=== PATIENT | male | born 1955 | race Caucasian/White ===

== ENCOUNTER 2018-09-18 10:12 | Emergency (ER) | payer MEDICARE, BC ==
[~2018-09-18] VITALS: Ht 188 cm; Wt 122.7 kg
[~2018-09-18 10:12] MED LIST: ALLO300T8 PO; ATOR10TA70 PO; CARV-50 PO; HYDR12.5 PO; LISD40CA PO; WARF6TAB49 PO
[2018-09-18] MEDS ORDERED: HYDROcodone/acetaminophen 10/325mg tab PO ONE (11:05)
[2018-09-18] MEDS ORDERED: ondansetron 4mg rapidly disintigrating tab PO ONE (11:05)
[2018-09-18] MEDS ORDERED: morphine 4 MG/ML inj SYRINge IV PRN (11:50)
[2018-09-18] MEDS ORDERED: ondansetron/PF 4mg/2ml inj IV ONE (11:50)
[2018-09-18] MEDS ORDERED: normal saline 1000ML IV soln IVB ONE (11:50)
[2018-09-18] MEDS ORDERED: predniSONE 20 mg tablet PO ONE (12:30)
[2018-09-18] MEDS ORDERED: azithromycin 250mg tablet PO ONE (12:30)
[2018-09-18 12:56] LABS: ALANINE AMINOTRANSFERASE 95 U/L (12-78); ALBUMIN 3.4 G/DL (3.4-5.0); ALBUMIN/GLOBULIN RATIO 1.1 (1.1-1.5); ALKALINE PHOSPHATASE 89 IU/L (46-116); ANION GAP 9 (8-16); ASPARTATE AMINO TRANSFERASE 66 U/L (10-37); BASOPHILS % (AUTO) 0.4 % (0-1); BILIRUBIN,TOTAL 0.7 MG/DL (0.1-1.0); BLOOD UREA NITROGEN 14 MG/DL (7-18); BUN/CREATININE RATIO 16.5 (5.4-32.0); CALCIUM 8.6 MG/DL (8.5-10.1); CHLORIDE 102 MMOL/L (99-107); CREATININE 0.85 MG/DL (0.60-1.10); EOSINOPHILS # (AUTO) 0.1 X10'3 (0-0.9); EOSINOPHILS % (AUTO) 1.3 % (0-6); GLUCOSE 243 MG/DL (70-104); HEMATOCRIT 42.2 % (42.0-52.0); HEMOGLOBIN 14.3 g/dl (14.0-17.9); LYMPHOCYTES # (AUTO) 0.9 X10'3 (1.1-4.8); LYMPHOCYTES % (AUTO) 12.6 % (21-51); MEAN CORPUSCULAR HEMOGLOBIN 30.9 PG (27.0-31.0); MEAN CORPUSCULAR HGB CONC 33.9 g/dL (33.0-36.5); MEAN CORPUSCULAR VOLUME 91.1 FL (78-98); MEAN PLATELET VOLUME 11.2 FL (7.4-10.4); MONOCYTES # (AUTO) 0.5 X10'3 (0-0.9); MONOCYTES % (AUTO) 7.5 % (2-12); NEUTROPHILS # (AUTO) 5.4 X10'3 (1.8-7.7); NEUTROPHILS % (AUTO) 78.2 % (42-75); PLATELET COUNT 91 X10'3 (140-440); POTASSIUM 4.1 MMOL/L (3.5-5.1); RED BLOOD COUNT 4.64 X10'6 (4.70-6.10); RED CELL DISTRIBUTION WIDTH 13.3 % (11.5-14.5); SODIUM 137 MMOL/L (135-145); TOTAL CARBON DIOXIDE 25.9 MMOL/L (24-32); TOTAL PROTEIN 6.4 G/DL (6.4-8.2); WHITE BLOOD COUNT 6.9 X10'3 (4.5-11.0); eGFR 90 ML/MIN
--- NOTE | 2018-09-18 13:41 | NUR ---
TC REPORT CALLED TO ROB. REPORT TO DIANE JACKSON.
--- NOTE | 2018-09-18 14:43 | NUR ---
[facility] TRANSPORT HERE TO TAKE PATIENT EN ROUTE TO [facility]. AT THE BEDSIDE, AWARE OF TRANSPORT AT THIS TIME. MEDICATED FOR NAUSEA AND PAIN. IV PATENT IN LEFT HAND AND CLAMPED OFF AT PRESENT. DEPARTED PER MERCEDES IN STABLE CONDITION.
[2018-09-18 15:13] VITALS: BP 186/110
== END 2018-09-18 14:45 | disposition short-term general hospital (02) ==
LOC: ER 10:13
DX: S32.492A Other specified fracture of left acetabulum, initial encounter for closed fracture (principal); I48.91 Unspecified atrial fibrillation; I11.0 Hypertensive heart disease with heart failure; I50.9 Heart failure, unspecified; C62.90 Malignant neoplasm of unspecified testis, unspecified whether descended or undescended; Z88.1 Allergy status to other antibiotic agents; Z79.01 Long term (current) use of anticoagulants; Z79.899 Other long term (current) drug therapy; Z95.4 Presence of other heart-valve replacement; W18.39XA Other fall on same level, initial encounter; Y93.89 Activity, other specified; Y92.89 Other specified places as the place of occurrence of the external cause; Y99.8 Other external cause status
CPT/HCPCS: 36415; 71045; 72192; 73503; 80053; 84145; 85025; 85610; 93005; 96374; 96375; 99285; J2270; J2405; J7030; J7512

== ENCOUNTER 2018-10-14 17:17 | Inpatient (IN) | payer MEDICARE, BC ==
[~2018-10-14] VITALS: Ht 188 cm; Wt 124.0 kg
--- NOTE | 2018-10-14 17:47 | NUR ---
PT TO CT
[2018-10-14 17:50] LABS: BASOPHILS % (AUTO) 0.3 % (0-1); EOSINOPHILS # (AUTO) 0.1 X10'3 (0-0.9); EOSINOPHILS % (AUTO) 0.7 % (0-6); HEMATOCRIT 34.2 % (42.0-52.0); HEMOGLOBIN 11.5 g/dl (14.0-17.9); LYMPHOCYTES # (AUTO) 0.9 X10'3 (1.1-4.8); LYMPHOCYTES % (AUTO) 6.3 % (21-51); MEAN CORPUSCULAR HEMOGLOBIN 29.7 PG (27.0-31.0); MEAN CORPUSCULAR HGB CONC 33.6 g/dL (33.0-36.5); MEAN CORPUSCULAR VOLUME 88.6 FL (78-98); MEAN PLATELET VOLUME 9.2 FL (7.4-10.4); MONOCYTES # (AUTO) 1.7 X10'3 (0-0.9); MONOCYTES % (AUTO) 12.5 % (2-12); NEUTROPHILS # (AUTO) 11.1 X10'3 (1.8-7.7); NEUTROPHILS % (AUTO) 80.2 % (42-75); PLATELET COUNT 173 X10'3 (140-440); RED BLOOD COUNT 3.86 X10'6 (4.70-6.10); WHITE BLOOD COUNT 13.8 X10'3 (4.5-11.0)
--- NOTE | 2018-10-14 17:51 | NUR ---
ARRIVED TO ASSIST IN EVALUATION FOR ACUTE STROKE. [address] EYES ARE OPEN RECOGNIZED NAME, BOTH EYES ARE VERY BLOOD SHOT. PT HAS OBVIOUS AWARENESS, DURING INTRODUCTION PTS GAZE WAS FORCED TO THE LEFT AND UPWARD, HE BEGAN TO HOLLER AND STIFFENED BOTH UPPER AND LOWER EXTREMITIES, UPPER EXT STIFFENED FIRST. AFTER APPROX 25 SEC THE TONIC POSTURE CHANGED TO TONIC CLONIC OF UPPER AND LOWER EXTREMITIES. THIS ACTIVITY LASTED APPROX 1-1.5 MINUTES.
[2018-10-14] MEDS ORDERED: LORazepam 2 mg/ml vial IV ONE (17:55)
[2018-10-14 18:01] LABS: ALANINE AMINOTRANSFERASE 38 U/L (12-78); ALBUMIN 2.3 G/DL (3.4-5.0); ALBUMIN/GLOBULIN RATIO 0.5 (1.1-1.5); ALKALINE PHOSPHATASE 175 IU/L (46-116); ANION GAP 10 (8-16); ASPARTATE AMINO TRANSFERASE 26 U/L (10-37); BILIRUBIN,TOTAL 0.6 MG/DL (0.1-1.0); BLOOD UREA NITROGEN 17 MG/DL (7-18); BUN/CREATININE RATIO 13.2 (5.4-32.0); CALCIUM 9.4 MG/DL (8.5-10.1); CHLORIDE 93 MMOL/L (99-107); CREATININE 1.29 MG/DL (0.60-1.10); GLUCOSE 366 MG/DL (70-104); POTASSIUM 4.1 MMOL/L (3.5-5.1); SODIUM 132 MMOL/L (135-145); TOTAL CARBON DIOXIDE 28.6 MMOL/L (24-32); TOTAL PROTEIN 6.8 G/DL (6.4-8.2); eGFR 56 ML/MIN
--- NOTE | 2018-10-14 18:13 | NUR ---
PT HAD 2ND SEIZURE AFTER CT. NPA PLACED IN LEFT. MORE ORAL TRAUMA NOTED. PT ON NON-REBREATHER 98%.
[2018-10-14 18:15] LABS: PARTIAL THROMBOPLASTIN TIME 58 SECONDS (22-32)
[2018-10-14] MEDS ORDERED: levoFLOXACIN-Levaquin 750MG/D5 150 ML IV ONE (18:20)
[2018-10-14] MEDS ORDERED: normal saline 1000ML IV soln IV ONE (18:20)
[2018-10-14] MEDS ORDERED: CefTRIAXone 2gm/D5W 50ml 50 ML IV ONE (18:20)
[2018-10-14 18:23] LABS: CLARITY,URINE CLOUDY (Clear); COLOR,URINE YELLOW (Yellow); GLUCOSE, URINE >=1000 mg/dl (Neg); KETONES,URINE NEGATIVE (Neg); LEUKOCYTE ESTERASE ,URINE NEGATIVE (Neg); NITRITES, URINE NEGATIVE (Neg); OCCULT BLOOD,URINE TRACE-INTACT (Neg); PROTEIN,URINE NEGATIVE (Neg); UROBILINOGEN,URINE 0.2 E.U/dL (0.2-1.0)
[2018-10-14 18:28] LABS: UA COLLECTION TYPE STRAIGHT CATH
[2018-10-14 18:29] LABS: MUCUS STRANDS NONE SEEN /LPF (Neg); SQUAMOUS EPITHELIAL CELL,UR FEW /LPF (FEW)
[2018-10-14 18:30] LABS: BACTERIA,URINE NONE SEEN /HPF (Neg); WBC,URINE NONE SEEN /HPF (0-4)
[2018-10-14 18:33] LABS: URINE AMPHETAMINE SCREEN NEGATIVE (Neg); URINE BARBITUATE SCREEN NEGATIVE (Neg); URINE BENZODIAZEPINES SCREEN NEGATIVE (Neg); URINE CANNABINOID SCREEN NEGATIVE (Neg); URINE COCAINE SCREEN NEGATIVE (Neg); URINE METHADONE SCREEN NEGATIVE (Neg); URINE OPIATE SCREEN POSITIVE (Neg); URINE PHENCYCLIDINE SCREEN NEGATIVE (Neg)
--- NOTE | 2018-10-14 19:00 | NUR ---
stroke nurse in room with pt and pt's with neuro consult re. appropriate seizure med recommendations. pt remains obtunded, did not rouse to nail bed pressure. he was switched from 15 L NRB to a simple mask @ 6 L and is maintaining 95% sats
--- NOTE | 2018-10-14 19:11 | NUR ---
180 PT NEEDED AIRWAY ASSISTANCE, VERY DUSKY, APPARENT TONGUE INJURY. PLACED ON NRB MASK WITH JAW THRUST PER DR HESS. COLOR PINKED UP VERY QUICKLY.PT ALSO RECEIVED 2MG OF ATIVAN, AND REMAINS OBTUNDED. 1899 DR HESS REQUESTED TELE NEURO EXAM WITH SOC DR VALENZUELA FOR ADVICE REGARDING SEIZURE CONTROL. EXAM COMLETED AT 191.
[2018-10-14] MEDS ORDERED: insulin regular, human 10 units/0.1 ml syringe IV ONE (19:20)
[2018-10-14] MEDS ORDERED: normal saline 1000ML IV soln IVB ONE (19:20)
[2018-10-14] MEDS ORDERED: levetiracetam inj 1,000 MG in normal saline 100ml IV soln 90 ML IV SCH (19:20)
[2018-10-14] MEDS ORDERED: levetiracetam-NS 1000mg/100ml 100 ML IV ONE (19:21)
--- NOTE | 2018-10-14 20:04 | NUR ---
EEG ABOUT TO START BY JOSEPH. RM DIMPLE.
[2018-10-14] MEDS ORDERED: POLY17PO10 PO (20:30)
[2018-10-14] MEDS ORDERED: ALLO100T PO (20:30)
[2018-10-14] MEDS ORDERED: ATOR20TA PO (20:30)
[2018-10-14] MEDS ORDERED: BISA10SU60 RC (20:30)
[2018-10-14] MEDS ORDERED: WARF6TAB PO (20:30)
[2018-10-14] MEDS ORDERED: ESZO3TAB66 PO (20:30)
[2018-10-14] MEDS ORDERED: NEO/3.5O RIGHTEYE (20:30)
[2018-10-14] MEDS ORDERED: DOCU-148 PO (20:30)
[2018-10-14] MEDS ORDERED: MULT-955 PO (20:30)
[2018-10-14] MEDS ORDERED: LISD40CA PO (20:30)
[2018-10-14] MEDS ORDERED: NEO/3.5O (20:30)
[2018-10-14] MEDS ORDERED: OXYC10TA47 PO (20:30)
[2018-10-14] MEDS ORDERED: HYDR12.5 PO (20:30)
[2018-10-14] MEDS ORDERED: CARV-49 PO (20:30)
[2018-10-14] MEDS ORDERED: GABA-530 PO (20:30)
[2018-10-14] MEDS ORDERED: MAGN400O6 PO (20:30)
--- NOTE | 2018-10-14 20:54 | NUR ---
pt remians obtunded with occasional moments of eye opening. he is still not speaking or purposeful moving any limbs. Vital signs are stable and he remains well saturated on a simple mask. food quality technician at bedside.
--- NOTE | 2018-10-14 22:07 | NUR ---
pt woke to voice, reporting a very dry mouth. Sponges provided and pt was able to speak clearly afterwards. He is oriented to person, place, and event. He knew it was October, but thought the year was 1969. he reports feeling 'tired' but not confused.
[2018-10-14] MEDS ORDERED: glucagon, human recombinant 1mg kit SUBCUT PRN (22:25)
[2018-10-14] MEDS ORDERED: acetaminophen 325mg tablet PO PRN ×2 (22:25)
[2018-10-14] MEDS ORDERED: dextrose 50%-water 50ml dispensing syringe IV PRN ×2 (22:25)
[2018-10-14] MEDS ORDERED: HYDROcodone/acetaminophen 5mg/325mg tablet PO PRN (22:25)
[2018-10-14] MEDS ORDERED: MESSAGE TO PHARMACY PO ONE (22:25)
[2018-10-14] MEDS ORDERED: magnesium hydroxide 30ml (MOM) UD suspension PO PRN (22:25)
[2018-10-14] MEDS ORDERED: HYDROcodone/acetaminophen 10/325mg tab PO PRN (22:25)
[2018-10-14] MEDS ORDERED: mag hydrox/Alum hydrox/simeth 30ml oral suspension PO PRN (22:25)
[2018-10-14] MEDS ORDERED: dextrose ORAL solution 15 GM/59 ML bottle PO PRN ×2 (22:25)
[2018-10-14] MEDS ORDERED: ondansetron/PF 4mg/2ml inj IV PRN (22:25)
[2018-10-14 22:30] VITALS: BP 128/57
--- NOTE | 2018-10-14 22:30 | NUR ---
Received report from SAFETY ENGINEER [employer]SELS. PT transferred to Neuro floor via [place], and transferred to bed via slide board. Pt is lethargic, but easily roused. Answers questions appropriately but is sometimes slow to answer and falls asleep while in mid sentence. See neuro assessment.
[2018-10-14] MEDS ORDERED: lisdexamfetamine dimesylate 40mg capsule PO PRN (22:35)
[2018-10-14 22:57] LABS: HEMOGLOBIN A1C 10.7 % (4.5-6.2)
[2018-10-15] MEDS: normal saline 1000ml 1,000 ML IV SCH ×3 (00:17→16:49)
[2018-10-15] MEDS: gabapentin 100mg capsule PO SCH ×3 (00:17→16:48)
[2018-10-15] MEDS: magnesium hydroxide 30ml (MOM) UD suspension PO SCH ×2 (00:20→22:35)
--- NOTE | 2018-10-15 00:58 | NUR ---
PT has hx of a pelvic fracture and left hip arthroplasty cannot test lower limb strength accurately. Patent has a bite wound in his left tongue sustained during his seizure, there is also swelling, may be the cause of his slurred speech Addendum: 10/15/18 at 0101 by Nitesh Bentley RN Amended: Links added.
[2018-10-15 02:00] VITALS: BP 117/62
[2018-10-15] MEDS: oxyCODONE IR 5mg (immed. release) tablet PO PRN ×4 (04:10→21:01)
[2018-10-15 06:00] VITALS: BP 133/63
[2018-10-15 06:27] LABS: BASOPHILS % (AUTO) 0.2 % (0-1); EOSINOPHILS # (AUTO) 0.1 X10'3 (0-0.9); EOSINOPHILS % (AUTO) 1.1 % (0-6); HEMATOCRIT 28.7 % (42.0-52.0); LYMPHOCYTES # (AUTO) 0.5 X10'3 (1.1-4.8); LYMPHOCYTES % (AUTO) 5.2 % (21-51); MEAN CORPUSCULAR HEMOGLOBIN 30.5 PG (27.0-31.0); MEAN CORPUSCULAR HGB CONC 34.7 g/dL (33.0-36.5); MEAN CORPUSCULAR VOLUME 87.9 FL (78-98); MEAN PLATELET VOLUME 9.2 FL (7.4-10.4); MONOCYTES % (AUTO) 10.1 % (2-12); NEUTROPHILS # (AUTO) 7.9 X10'3 (1.8-7.7); NEUTROPHILS % (AUTO) 83.4 % (42-75); PLATELET COUNT 108 X10'3 (140-440); RED BLOOD COUNT 3.26 X10'6 (4.70-6.10); RED CELL DISTRIBUTION WIDTH 15.1 % (11.5-14.5); WHITE BLOOD COUNT 9.4 X10'3 (4.5-11.0)
[2018-10-15 06:39] LABS: ALBUMIN 1.8 G/DL (3.4-5.0); ANION GAP 4 (8-16); BLOOD UREA NITROGEN 12 MG/DL (7-18); BUN/CREATININE RATIO 14.5 (5.4-32.0); CALCIUM 8.4 MG/DL (8.5-10.1); CHLORIDE 99 MMOL/L (99-107); CHOL/HDL RATIO 6.9 (0.00-4.99); CHOLESTEROL 83 MG/DL (0-200); CREATININE 0.83 MG/DL (0.60-1.10); GLUCOSE 211 MG/DL (70-104); HDL CHOLESTEROL 12 MG/DL (35-60); LDL CHOLESTEROL 53 MG/DL (50-100); POTASSIUM 3.8 MMOL/L (3.5-5.1); SODIUM 135 MMOL/L (135-145); TOTAL CARBON DIOXIDE 31.6 MMOL/L (24-32); TRIGLYCERIDES 133 MG/DL (20-135); eGFR > 90 ML/MIN
[2018-10-15] MEDS: piperacillin/tazo 3.375gm/50ml 50 ML IV SCH ×3 (06:44→23:29)
[2018-10-15] MEDS ORDERED: non-formulary drug (Warfarin Sodium (Coumadin) 1 TAB) PO SCH (08:00)
[2018-10-15] MEDS: polyethylene glycol 3350 17gm powd pack PO SCH (08:00)
[2018-10-15] MEDS: multivitamins, therapeutics tablet PO SCH (08:40)
[2018-10-15] MEDS: docusate sod 100mg capsule PO SCH ×2 (08:40→20:24)
[2018-10-15] MEDS: allopurinol 100mg tablet PO SCH (08:40)
[2018-10-15] MEDS: carvedilol 6.25mg tablet PO SCH ×2 (08:40→20:18)
[2018-10-15] MEDS: levetiracetam 250mg tablet PO SCH ×2 (08:40→20:22)
[2018-10-15] MEDS: atorvastatin 20mg tablet PO SCH (08:40)
[2018-10-15] MEDS: HYDROchlorothiazide 12.5mg capsule PO SCH (08:41)
[2018-10-15] MEDS: insulin Lispro (HumaLOG) vial - multi-dose SQ SCH ×3 (08:54→20:17)
[2018-10-15] MEDS: azithromycin/NS 500mg/250ml 250 ML IV SCH (09:08)
[2018-10-15 10:00] VITALS: BP 107/54
--- NOTE | 2018-10-15 15:28 | NUR ---
DM consult, A1c 10.7, needs written DM education handout with verbal review and referral to outpatient DM education class on Thursday. Per MD note this is a new diagnosis. Admitted with new onset seizures per MD note, recent pelvic fracture. H/o HTN, HLD. Patient was not available at bedside, per RN pt was at a test. Will see tomorrow. 1. continue carb controlled diet 2. wt per rx 3. Provide written and verbal DM education Addendum: 10/15/18 at [address] Amended: Links added.
[2018-10-15 18:00] VITALS: BP 114/58
--- NOTE | 2018-10-15 18:10 | NUR ---
Problems reprioritized. Patient report given, questions answered & plan of care reviewed with BARBARA CONTRERAS.
--- NOTE | 2018-10-15 19:00 | NUR ---
Patient in room ORTHO 4010. I have received report from Ellis CONTRERAS and had the opportunity to ask questions and assume patient care.
[2018-10-15] MEDS: lactobacillus rhamnosus 10,000 MMU CELLS/CAPSULE PO SCH (20:22)
[2018-10-15] MEDS ORDERED: zolpidem 5mg tablet PO SCH (21:00)
[2018-10-15] MEDS ORDERED: insulin glargine (Lantus) pen - multi-dose SQ SCH (21:00)
[2018-10-15] MEDS ORDERED: warfarin 3mg tablet PO ONE (21:00)
[2018-10-15 22:00] VITALS: BP 135/55
[2018-10-16 02:00] VITALS: BP 135/55
[2018-10-16] MEDS: normal saline 1000ml 1,000 ML IV SCH ×2 (04:24→14:24)
[2018-10-16 06:00] VITALS: BP 109/54
[2018-10-16] MEDS: piperacillin/tazo 3.375gm/50ml 50 ML IV SCH ×2 (06:07→14:00)
[2018-10-16 06:11] LABS: ALBUMIN 1.7 G/DL (3.4-5.0); ANION GAP 5 (8-16); BLOOD UREA NITROGEN 9 MG/DL (7-18); BUN/CREATININE RATIO 10.8 (5.4-32.0); CALCIUM 8.4 MG/DL (8.5-10.1); CHLORIDE 99 MMOL/L (99-107); CREATININE 0.83 MG/DL (0.60-1.10); GLUCOSE 163 MG/DL (70-104); POTASSIUM 3.8 MMOL/L (3.5-5.1); SODIUM 136 MMOL/L (135-145); TOTAL CARBON DIOXIDE 31.8 MMOL/L (24-32); eGFR > 90 ML/MIN
[2018-10-16 06:54] LABS: BASOPHILS % (AUTO) 0.2 % (0-1); EOSINOPHILS # (AUTO) 0.1 X10'3 (0-0.9); EOSINOPHILS % (AUTO) 1.3 % (0-6); HEMATOCRIT 28.2 % (42.0-52.0); HEMOGLOBIN 9.6 g/dl (14.0-17.9); LYMPHOCYTES # (AUTO) 0.8 X10'3 (1.1-4.8); LYMPHOCYTES % (AUTO) 9.2 % (21-51); MEAN CORPUSCULAR HEMOGLOBIN 29.5 PG (27.0-31.0); MEAN CORPUSCULAR HGB CONC 34.1 g/dL (33.0-36.5); MEAN CORPUSCULAR VOLUME 86.4 FL (78-98); MEAN PLATELET VOLUME 9.7 FL (7.4-10.4); MONOCYTES % (AUTO) 11.3 % (2-12); PLATELET COUNT 91 X10'3 (140-440); RED BLOOD COUNT 3.26 X10'6 (4.70-6.10); RED CELL DISTRIBUTION WIDTH 14.9 % (11.5-14.5)
[2018-10-16] MEDS: multivitamins, therapeutics tablet PO SCH (07:54)
[2018-10-16] MEDS: levetiracetam 250mg tablet PO SCH (07:54)
[2018-10-16] MEDS: docusate sod 100mg capsule PO SCH (07:54)
[2018-10-16] MEDS: allopurinol 100mg tablet PO SCH (07:54)
[2018-10-16] MEDS: gabapentin 100mg capsule PO SCH ×3 (07:54→16:54)
[2018-10-16] MEDS: carvedilol 6.25mg tablet PO SCH (07:54)
[2018-10-16] MEDS: lactobacillus rhamnosus 10,000 MMU CELLS/CAPSULE PO SCH (07:54)
[2018-10-16] MEDS: HYDROchlorothiazide 12.5mg capsule PO SCH (07:54)
[2018-10-16] MEDS: atorvastatin 20mg tablet PO SCH (07:54)
[2018-10-16] MEDS: oxyCODONE IR 5mg (immed. release) tablet PO PRN ×3 (07:55→16:54)
[2018-10-16] MEDS: polyethylene glycol 3350 17gm powd pack PO SCH (08:00)
[2018-10-16] MEDS: insulin Lispro (HumaLOG) vial - multi-dose SQ SCH ×2 (09:13→13:59)
[2018-10-16] MEDS: azithromycin/NS 500mg/250ml 250 ML IV SCH (09:14)
[2018-10-16 10:00] VITALS: BP 118/63
--- NOTE | 2018-10-16 12:09 | NUR ---
Visited briefly. Pt sitting up in chair. He says " feels sleepy." Stroke work up is negative. Needs CT for shoulder, fx found on xray.
[2018-10-16] MEDS ORDERED: warfarin 7.5mg tablet PO ONE (21:00)
== END 2018-10-16 17:30 | DRG 100 ==
LOC: ER 17:18 → ORTHO 4S 23:03
PROVIDERS: ADMIT Hospitalist; ATTEND Internal Medicine
PROC: 4A10X4Z Monitoring of Central Nervous Electrical Activity, External Approach (ICD-10-PCS; principal; 2018-10-14)
PROC: BW38YZZ Magnetic Resonance Imaging (MRI) of Head using Other Contrast (ICD-10-PCS; 2018-10-15)
DX: G40.89 Other seizures (principal); J18.1 Lobar pneumonia, unspecified organism; E43 Unspecified severe protein-calorie malnutrition; D62 Acute posthemorrhagic anemia; E87.1 Hypo-osmolality and hyponatremia; E87.2 Acidosis; I13.0 Hypertensive heart and chronic kidney disease with heart failure and stage 1 through stage 4 chronic kidney disease, or unspecified chronic kidney disease; N17.9 Acute kidney failure, unspecified; D69.6 Thrombocytopenia, unspecified; E11.22 Type 2 diabetes mellitus with diabetic chronic kidney disease; E11.65 Type 2 diabetes mellitus with hyperglycemia; E78.5 Hyperlipidemia, unspecified; E86.0 Dehydration; W18.39XA Other fall on same level, initial encounter; I48.91 Unspecified atrial fibrillation; I50.9 Heart failure, unspecified; S42.142A Displaced fracture of glenoid cavity of scapula, left shoulder, initial encounter for closed fracture; N18.9 Chronic kidney disease, unspecified; R09.02 Hypoxemia; S40.012A Contusion of left shoulder, initial encounter; Z79.01 Long term (current) use of anticoagulants; Z85.47 Personal history of malignant neoplasm of testis; Z95.2 Presence of prosthetic heart valve; Z68.35 Body mass index [BMI] 35.0-35.9, adult; Z88.8 Allergy status to other drugs, medicaments and biological substances; Z79.899 Other long term (current) drug therapy; Y93.89 Activity, other specified; Y92.89 Other specified places as the place of occurrence of the external cause; Y99.8 Other external cause status
CPT/HCPCS: 36415; 70450; 70544; 70551; 71045; 72125; 73030; 73200; 80048; 80053; 80061; 80305; 81001; 82948; 83036; 83605; 84145; 85025; 85610; 85730; 86885; 86900; 86901; 87040; 87081; 93005; 93306; 93880; 95816; 96365; 96368; 96375; 97116; 97162; 97530; 99291; G0378; J0456; J0696; J1815; J1953; J1956; J2060; J2543; J7030

== ENCOUNTER 2020-10-17 08:03 | Day surgery (SDC) | payer MEDICARE, BC ==
[2020-10-16 09:43] LABS: BASOPHILS % (AUTO) 0.4 % (0-1); EOSINOPHILS # (AUTO) 0.1 X10'3 (0-0.9); EOSINOPHILS % (AUTO) 2.3 % (0-6); HEMATOCRIT 45.6 % (42.0-52.0); HEMOGLOBIN 15.1 g/dl (14.0-17.9); LYMPHOCYTES # (AUTO) 0.7 X10'3 (1.1-4.8); LYMPHOCYTES % (AUTO) 14.6 % (21-51); MEAN CORPUSCULAR HGB CONC 33.2 g/dL (33.0-36.5); MEAN CORPUSCULAR VOLUME 87.3 FL (78-98); MEAN PLATELET VOLUME 10.5 FL (7.4-10.4); MONOCYTES # (AUTO) 0.4 X10'3 (0-0.9); NEUTROPHILS # (AUTO) 3.8 X10'3 (1.8-7.7); NEUTROPHILS % (AUTO) 74.7 % (42-75); PLATELET COUNT 113 X10'3 (140-440); RED BLOOD COUNT 5.22 X10'6 (4.70-6.10); RED CELL DISTRIBUTION WIDTH 14.9 % (11.5-14.5); WHITE BLOOD COUNT 5.1 X10'3 (4.5-11.0)
[2020-10-16 10:13] LABS: ALANINE AMINOTRANSFERASE 28 U/L (12-78); ALBUMIN 4.2 G/DL (3.4-5.0); ALBUMIN/GLOBULIN RATIO 1.4 (1.1-1.5); ALKALINE PHOSPHATASE 102 IU/L (46-116); ANION GAP 12 (8-16); ASPARTATE AMINO TRANSFERASE 21 U/L (10-37); BILIRUBIN,TOTAL 0.5 MG/DL (0.1-1.0); BLOOD UREA NITROGEN 21 MG/DL (7-18); BUN/CREATININE RATIO 17.9 (5.4-32.0); CALCIUM 8.7 MG/DL (8.5-10.1); CHLORIDE 108 MMOL/L (99-107); CREATININE 1.17 MG/DL (0.60-1.10); GLUCOSE 168 MG/DL (70-104); POTASSIUM 4.4 MMOL/L (3.5-5.1); SODIUM 144 MMOL/L (135-145); TOTAL CARBON DIOXIDE 23.9 MMOL/L (24-32); TOTAL PROTEIN 7.1 G/DL (6.4-8.2); eGFR 62 ML/MIN
[2020-10-17] VITALS (19 sets, daily range): BP systolic 121–149; BP diastolic 63–94
[~2020-10-17] VITALS: Ht 185.4 cm; Wt 131.0 kg
[~2020-10-17 08:03] MED LIST changes: +ALLO100T PO; -ALLO300T8 PO; -ATOR10TA70 PO; +ATOR20TA PO; +BISA10SU60 RC; +CARV-49 PO; -CARV-50 PO; +DOCU-148 PO; +ESZO3TAB66 PO; +GABA-530 PO; +MAGN400O6 PO; +MULT-955 PO; +NEO/3.5O; +OXYC10TA47 PO; +POLY17PO10 PO; +WARF6TAB PO; -WARF6TAB49 PO
[2020-10-17] MEDS ORDERED: diphenhydrAMINE 25mg capsule PO ONE (08:20)
[2020-10-17] MEDS ORDERED: atropine 0.1mg/ml 10ml syringe IV ONE (08:20)
[2020-10-17] MEDS ORDERED: morphine 10mg/ml inj. IV ONE (08:20)
[2020-10-17] MEDS ORDERED: LORazepam 0.5 MG tablet PO ONE (08:20)
[2020-10-17] MEDS ORDERED: MIDAZolam 1mg/ml 10ml vial IV ONE (08:20)
[2020-10-17] MEDS ORDERED: normal saline 1000ml 1,000 ML IV SCH (08:20)
[2020-10-17] MEDS ORDERED: amiodarone 150mg/dext, iso-os 100 ML IV ONE (08:20)
[2020-10-17] MEDS ORDERED: CARV-50 PO (08:28)
[2020-10-17] MEDS ORDERED: LISD70CA PO (08:28)
[2020-10-17] MEDS ORDERED: AMIO200T61 PO (08:28)
[2020-10-17] MEDS ORDERED: ERGO400C PO (08:28)
[2020-10-17] MEDS ORDERED: ALLO100T PO (08:28)
[2020-10-17] MEDS ORDERED: MULT-1085 PO (08:28)
[2020-10-17] MEDS ORDERED: ESZO2TAB22 PO (08:28)
[2020-10-17] MEDS ORDERED: ATOR10TA87 PO (08:28)
[2020-10-17] MEDS ORDERED: WARF6TAB49 PO (08:28)
== END 2020-10-17 11:00 | disposition home or self-care (01) ==
LOC: SSTAY O 08:03
PROVIDERS: ATTEND Internal Medicine Cardiovascular Disease
DX: I48.0 Paroxysmal atrial fibrillation (principal); I47.1 Supraventricular tachycardia; I11.0 Hypertensive heart disease with heart failure; I50.9 Heart failure, unspecified; I27.29 Other secondary pulmonary hypertension; E78.5 Hyperlipidemia, unspecified; G47.30 Sleep apnea, unspecified; Z95.2 Presence of prosthetic heart valve; I08.2 Rheumatic disorders of both aortic and tricuspid valves; Z88.1 Allergy status to other antibiotic agents; Z72.89 Other problems related to lifestyle; Z87.891 Personal history of nicotine dependence; Z79.01 Long term (current) use of anticoagulants; Z85.47 Personal history of malignant neoplasm of testis
CPT/HCPCS: 36415; 80053; 85025; 85610; 92960; 93005; J2250; J2270; J7030

== ENCOUNTER 2020-10-25 11:13 | Outpatient (CLI) | payer MEDICARE, BC ==
[~2020-10-25] VITALS: Ht 185.4 cm; Wt 127.0 kg
[~2020-10-25 11:13] MED LIST changes: +AMIO200T61 PO; +ATOR10TA87 PO; -ATOR20TA PO; -BISA10SU60 RC; -CARV-49 PO; +CARV-50 PO; -DOCU-148 PO; +ERGO400C PO; +ESZO2TAB22 PO; -ESZO3TAB66 PO; -GABA-530 PO; -HYDR12.5 PO; -LISD40CA PO; +LISD70CA PO; -MAGN400O6 PO; +MULT-1085 PO; -MULT-955 PO; -NEO/3.5O; -OXYC10TA47 PO; -POLY17PO10 PO; -WARF6TAB PO; +WARF6TAB49 PO
[2020-10-25] MEDS ORDERED: albuterol 2.5 MG/3 ML nebule NEB ONE (11:45)
== END 2020-10-25 23:59 | disposition home or self-care (01) ==
LOC: RT 11:13
PROVIDERS: ATTEND Internal Medicine Pulmonary Disease
DX: R06.02 Shortness of breath (principal)
CPT/HCPCS: 94060; 94727; 94729; 94760